=== PATIENT | male | born 1955 | race Caucasian/White ===

== ENCOUNTER 2018-11-18 21:07 | Emergency (ER) | payer OTHER ==
[~2018-11-18] VITALS: Ht 170.2 cm; Wt 74.4 kg
[2018-11-18 21:16] VITALS: BP_SYST 144
--- NOTE | 2018-11-18 23:20 | NUR ---
Patient to ER bed 3 for evaluation. Side rails up.
[2018-11-18] MEDS ORDERED: IBUPROFEN 600 MG TABLET PO ONE (23:30)
--- NOTE | 2018-11-18 23:30 | NUR ---
JEN Marquez at bedside examining patient.
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
[2018-11-18 23:52] VITALS: BP_SYST 134
--- NOTE | 2018-11-18 23:52 | NUR ---
Patient given written and verbal discharge instructions and verbalizes understanding. ER MD discussed with patient the results and treatment provided. Patient in stable condition. ID arm band removed. Rx of ibuprofen 600mg given. Patient educated on pain management and to follow up with PMD. Pain Scale 3/10. Opportunity for questions provided and answered. Medication side effect fact sheet provided.
--- NOTE | 2018-11-19 10:01 | NUR ---
RECEIVED DISCREPTANCY FROM DR ROMERO AND DISCUSSED CASE WITH DR YOON. NO FURTHER ACTIONS NEEDED PER DR YOON
== END 2018-11-18 23:52 | disposition home or self-care (01) ==
LOC: SED 21:07
DX: S20.212A Contusion of left front wall of thorax, initial encounter (principal); V43.53XA Car driver injured in collision with pick-up truck in traffic accident, initial encounter; Y93.89 Activity, other specified; Y92.410 Unspecified street and highway as the place of occurrence of the external cause; Y99.8 Other external cause status
CPT/HCPCS: 71046-TC; 99283